=== PATIENT | female | born 1950 | race Caucasian/White ===

== ENCOUNTER → 2016-05-10 | Outpatient (CLI) | payer BC ==
[~2016-05-10] MED LIST: ASPI-586 PO; BIOT1TAB16 PO; CALC-6 PO; CHOL10003 PO; CYAN250014 PO; HYALURONIC ACID PO; HYDR-3730 PO; HYDR50TA3 PO; JOINT PO; KRIL1CAP2 PO; LEVO25TA5 PO; MAGN400T6 PO; POTA20TA8 PO; VITA400C60 PO; [UNRECOGNIZED DRUG - OTHER] PO
--- NOTE | 2016-05-10 16:46 | Diagnostic Imaging Report ---
EXAMINATION: PET-CT TECHNIQUE: Serum glucose level at the time of the study is: 92 mg/dL. 13.3 mCi of FDG was administered intravenously followed by obtaining PET images with corresponding noncontrast CT scan images. The CT scan was performed for anatomic correlation and attenuation correction and was not performed according to the diagnostic protocol of the areas covered. The scan was performed from the head to mid thighs. INDICATION: Rectal mass. Rectal bleeding. FINDINGS: There is a mass at the distal aspect of the sigmoid colon measuring 5.5 cm in length with associated hypermetabolism and associated FDG uptake with SUV of 9. There is no hypermetabolic regional enlarged lymph nodes or liver metastasis seen. No other hypermetabolic suspicious mass is seen in the abdomen or pelvis. There is symmetric FDG uptake in the brain. There is mild nonfocal areas of increased FDG uptake in the pharynx probably physiologic with no focal suspicious area of hypermetabolism. There is no suspicious hypermetabolic lesion seen in the chest. The osseous structures demonstrate no significant hypermetabolic lesions to suggest metastasis. IMPRESSION: Hypermetabolic mass in the distal sigmoid colon with no hypermetabolic regional enlarged lymph nodes and no evidence of metastasis. Dictated by: Dictated on workstation # [id number]
== END ==
LOC: RAD 11:17
PROVIDERS: ATTEND Surgery
DX: C18.9 Malignant neoplasm of colon, unspecified (principal)

== ENCOUNTER 2016-05-20 09:39 | Outpatient (CLI) | payer BC, MEDICARE ==
[~2016-05-20] VITALS: Ht 160 cm; Wt 62.3 kg
[2016-05-20 09:49] VITALS: BP 143/76
[2016-05-20] MEDS ORDERED: CALC-6 PO (11:11)
[2016-05-20] MEDS ORDERED: ASPI-586 PO (11:11)
[2016-05-20] MEDS ORDERED: BIOT1TAB16 PO (11:11)
[2016-05-20] MEDS ORDERED: POTA20TA8 PO (11:11)
[2016-05-20] MEDS ORDERED: VITA400C60 PO (11:11)
[2016-05-20] MEDS ORDERED: HYDR50TA3 PO (11:11)
[2016-05-20] MEDS ORDERED: KRIL1CAP2 PO (11:11)
[2016-05-20] MEDS ORDERED: CHOL10003 PO (11:11)
[2016-05-20] MEDS ORDERED: CYAN250014 PO (11:11)
[2016-05-20] MEDS ORDERED: [UNRECOGNIZED DRUG - OTHER] PO (11:11)
[2016-05-20] MEDS ORDERED: HYALURONIC ACID PO (11:11)
[2016-05-20] MEDS ORDERED: LEVO25TA5 PO (11:11)
[2016-05-20] MEDS ORDERED: JOINT PO (11:11)
== END 2016-05-20 10:25 | disposition home or self-care (01) ==
LOC: PREOP 09:39
PROVIDERS: ATTEND Surgery Pediatric Surgery
DX: Z01.818 Encounter for other preprocedural examination (principal); Z11.2 Encounter for screening for other bacterial diseases; C18.9 Malignant neoplasm of colon, unspecified
CPT/HCPCS: 87081

== ENCOUNTER 2016-05-26 08:45 | Inpatient (IN) | payer BC, MEDICARE ==
[~2016-05-26] VITALS: Ht 160 cm; Wt 62.3 kg
[~2016-05-26 08:45] MED LIST changes: -HYDR-3730 PO; -MAGN400T6 PO
--- NOTE | 2016-05-26 09:04 | Progress Note-Pre Operative ---
Pre-Operative Progress Note H&P Reviewed The H&P was reviewed, patient examined and no changes noted. Date H&P Reviewed: May 26, 2016 Time H&P Reviewed: 09:00 Pre-Operative Diagnosis: colorectal cancer KATHI MCCLURE MD May 26, 2016 9:04 am
[2016-05-26] MEDS ORDERED: metroNIDAZOLE 500MG/100ML IVPB 100 ML ONE (09:06)
[2016-05-26] MEDS ORDERED: LEVOFLOXACIN 500 MG/100 ML IV 100 ML ONE (09:06)
[2016-05-26] MEDS: LACTATED RINGERS 1,000 ML IV SCH ×3 (09:15→13:45)
[2016-05-26] MEDS ORDERED: LEVOFLOXACIN 500 MG/D5W 100 ML (PRE-MIX) IV ONE (09:30)
[2016-05-26] MEDS ORDERED: CATHETER FLUSH 10 ML SYR IV PRN (09:30)
[2016-05-26] MEDS ORDERED: metroNIDAZOLE 500 MG/100 ML IVPB (PRE-MIX) IV ONE (09:30)
[2016-05-26 10:05] VITALS: BP 155/73
[2016-05-26] MEDS ORDERED: HEParin (CENTRAL IV FLUSH) 500 UNIT/5 ML SYR ONE ×2 (10:37→11:40)
[2016-05-26] MEDS ORDERED: BUP/EPI 0.5% 1:200,000 (SENSORCAINE) 30 ML VIAL ONE (10:37)
[2016-05-26] MEDS ORDERED: LACTATED RINGERS 1,000 ML IV PRN (10:40)
[2016-05-26] MEDS ORDERED: SEVOFLURANE (ULTANE) 15 ML INHAL SOLN ONE ×2 (10:43→14:33)
[2016-05-26] MEDS ORDERED: LACTATED RINGERS 1,000 ML IV ONE ×3 (10:43→14:31)
[2016-05-26] MEDS ORDERED: proPOfol 200 MG/20 ML (DIPRIVAN) VIAL IV ONE (10:43)
[2016-05-26] MEDS ORDERED: ROCURONIUM 50 MG/5 ML (ZEMURON) VIAL IV ONE ×2 (10:43→13:26)
[2016-05-26] MEDS ORDERED: LIDOCAINE PF 2% 10 ML (XYLOCAINE) AMP ONE (10:43)
[2016-05-26] MEDS ORDERED: fentaNYL INJECTION 100 MCG/2 ML AMP ONE ×2 (10:44→13:29)
[2016-05-26] MEDS ORDERED: MIDAZOLAM 2 MG/2 ML (VERSED) VIAL ONE (10:44)
[2016-05-26] MEDS ORDERED: NEOSTIGMINE (BLOXIVERZ ) 1 MG/1ML 10 ML VIAL ONE (14:28)
[2016-05-26] MEDS ORDERED: GLYCOPYRROLATE 0.2 MG/ML (ROBINUL) 2 ML VIAL ONE (14:28)
--- NOTE | 2016-05-26 14:38 | Progress Note-Post Operative ---
Post-Operative Progess Note Surgeon (s)/Campground Manager (s) Surgeon KATHI MCCLURE MD Campground Manager: lindsey serrano [employer] Pre-Operative Diagnosis colorectal cancer Post-Operative Diagnosis same Post-Op Procedure Note Date of Procedure: May 26, 2016 Name of Procedure Performed: laparoscopic low anterior sigmoid colorectal resection. placement left subclavian central venous catheter. Description of the Procedure: laparoscopic low anterior sigmoid colorectal resection. placement left subclavian central venous catheter. Findings of the Procedure . Anesthesia Type GET Estimated blood loss (mL): 200ml Specimen(s) collected/removed sigmioid-rectum KATHI MCCLURE MD May 26, 2016 2:38 pm
[2016-05-26] MEDS ORDERED: HYDROcodone/APAP 7.5 MG/325 MG (LORTAB, LORCET PLUS) TABLET PO PRN (14:45)
[2016-05-26] MEDS ORDERED: fentaNYL INJECTION 5,000 MCG in NS (IVPB) 0 ML IV SCH (14:45)
[2016-05-26] MEDS ORDERED: morphine INJ 10 MG/ML 1ML (SYR OR VIAL) ONE (14:56)
[2016-05-26] MEDS: morphine INJ 10 MG/ML 1ML (SYR OR VIAL) IVP PRN ×2 (15:05→15:12)
[2016-05-26] MEDS ORDERED: HYDROmorphone (DILAUDID) 2 MG/ML VIAL ONE (15:16)
[2016-05-26] MEDS: HYDROmorphone (DILAUDID) 2 MG/ML VIAL IVP PRN ×2 (15:23→15:33)
[2016-05-26] MEDS ORDERED: ONDANSETRON 4 MG/2 ML (SDV) Z0FRAN IVP PRN (15:30)
--- NOTE | 2016-05-26 15:36 | Diagnostic Imaging Report ---
EXAMINATION: Portable upright radiograph of the chest. INDICATION: Post central line placement. FINDINGS: There is an NG tube in place. There is a left subclavian line with the tip at the upper SVC level. There is soft tissue air along the neck, the chest wall, the upper abdominal wall laterally and along the breast tissues. There is no pneumothorax. No definite pneumomediastinum although some of the air density in the neck appears to project over the upper mediastinum. No focal pulmonary infiltrate. The heart size is borderline enlarged. No effusion or pneumothorax. IMPRESSION: 1. Prominent amount of soft tissue air, in the abdominal and chest beltran and in the neck. Part of the air density projects over the upper mediastinum but could be from overlying superficial soft tissues. If there is concern for pneumomediastinum, then CT chest evaluation would be helpful. 2. Prominent cardiac size. No focal infiltrate. Dictated by: Dictated on workstation # [id number]
[2016-05-26] MEDS ORDERED: fentaNYL (OMNICELL DRIP KIT ONLY) 250 MCG/5 ML AMP ONE (16:42)
[2016-05-26] MEDS: 1/2 NS W/KCL 20 MEQ/L 1,000 ML IV SCH ×2 (17:01→21:18)
[2016-05-26] MEDS: metroNIDAZOLE 500MG/100ML IVPB 100 ML IV SCH ×2 (17:45→22:26)
[2016-05-26] MEDS: fentaNYL PCA 300 MCG/30 ML VIAL IV PRN (17:47)
[2016-05-26 20:00] VITALS: BP 139/69
[2016-05-26 21:00] VITALS: BP 124/70
[2016-05-26] MEDS: CLINDAMYCIN 900 MG/NS 50 ML IVPB IV SCH ×2 (21:35)
[2016-05-26] MEDS: ENOXAPARIN 30 MG/0.3 ML (LOVENOX) SYR SC SCH (21:35)
[2016-05-26 22:00] VITALS: BP 129/62
[2016-05-26] MEDS ORDERED: CLINDAMYCIN 900 MG/50 ML IVPB 50 ML IV SCH (22:00)
[2016-05-26 23:00] VITALS: BP 134/59
[2016-05-27] VITALS (15 sets, daily range): BP systolic 116–143; BP diastolic 54–74
[2016-05-27] MEDS: 1/2 NS W/KCL 20 MEQ/L 1,000 ML IV SCH ×4 (02:15→19:39)
[2016-05-27] MEDS: RT-ALBUTEROL SULF 2.5 MG/3 ML PRE-MIX VIAL INH SCH ×6 (02:23→22:38)
[2016-05-27] MEDS ORDERED: MAGNESIUM 1 GM/100 ML IVPB 100 ML IV SCH (06:00)
[2016-05-27] MEDS ORDERED: POTASSIUM CL 10MEQ/50ML IVPB 50 ML IV SCH (06:00)
[2016-05-27] MEDS ORDERED: KCL 20 MEQ TAB (K-DUR) PO SCH (06:00)
[2016-05-27] MEDS: CLINDAMYCIN 900 MG/NS 50 ML IVPB IV SCH ×4 (06:18→16:08)
[2016-05-27 06:45] LABS: BASOPHILS % (AUTO) 0 % (0-10); EOSINOPHILS % (AUTO) 0 % (0-10); LYMPHOCYTES # (AUTO) 0.6 X 10^3 (1.0-4.0); LYMPHOCYTES % (AUTO) 5 % (12-44); MEAN CORPUSCULAR HEMOGLOBIN 28 PG (25-34); MEAN CORPUSCULAR HGB CONC 33 G/DL (32-36); MEAN CORPUSCULAR VOLUME 86 FL (80-99); MEAN PLATELET VOLUME 10.2 FL (7.4-10.4); MONOCYTES # (AUTO) 0.8 X 10^3 (0.0-1.0); MONOCYTES % (AUTO) 7 % (0-12); NEUTROPHILS % (AUTO) 89 % (42-75); PLATELET COUNT 303 10^3/uL (130-400); RED BLOOD COUNT 3.99 10^6/uL (4.35-5.85); RED CELL DISTRIBUTION WIDTH 13.3 % (10.0-14.5); WHITE BLOOD COUNT 12.4 10^3/uL (4.3-11.0)
[2016-05-27] MEDS: metroNIDAZOLE 500MG/100ML IVPB 100 ML IV SCH (07:02)
[2016-05-27 07:06] LABS: ANION GAP 12 MMOL/L (5-14); BLOOD UREA NITROGEN 7 MG/DL (7-18); BUN/CREATININE RATIO 11; CALCIUM 7.8 MG/DL (8.5-10.1); CARBON DIOXIDE 22 MMOL/L (21-32); CHLORIDE 104 MMOL/L (98-107); CREATININE SERUM 0.64 MG/DL (0.60-1.30); GFR ESTIMATED > 60; GLUCOSE 120 MG/DL (70-105); MAGNESIUM 1.5 MG/DL (1.8-2.4); PHOSPHORUS 3.1 MG/DL (2.3-4.7); POTASSIUM 3.2 MMOL/L (3.6-5.0); SODIUM 138 MMOL/L (135-145)
--- NOTE | 2016-05-27 07:49 | Diagnostic Imaging Report ---
Portable erect AP chest at 4:52 AM. INDICATION: Postop. The heart size is within normal limits, and the heart does seem somewhat less prominent than noted on the prior exam of 05/26/2016. The interstitial densities in both lungs are also less striking than noted on the prior exam. There is no sign of pneumonia or a pleural effusion. The previous study did show a fair amount of subcutaneous emphysema overlying the right thorax. This has diminished as well. There is only a small amount of residual subcutaneous emphysema in the left supraclavicular region also. The mediastinum is not widened. The osseous structures are intact. The supportive tubes and lines seen previously are stable in position. IMPRESSION: The appearance of the chest has improved since the prior exam as the lungs do seem better aerated and the subcutaneous emphysema overlying the thorax seen previously has diminished. A followup study would be recommended for continued evaluation. Dictated by: Dictated on workstation # [id number]
[2016-05-27] MEDS: MAGNESIUM 1 GM/100 ML IVPB 100 ML IV SCH ×2 (09:12→10:41)
[2016-05-27] MEDS: ENOXAPARIN 30 MG/0.3 ML (LOVENOX) SYR SC SCH ×2 (09:12→20:23)
[2016-05-27] MEDS: PANTOPRAZOLE 40 MG/10 ML (PROTONIX) VIAL IV SCH (09:12)
[2016-05-27] MEDS: POTASSIUM CL 10MEQ/50ML IVPB 50 ML IV SCH ×4 (09:12→15:07)
--- NOTE | 2016-05-27 10:00 | OPERATIVE REPORT ---
PROCEDURE PHYSICIAN: KATHI SETH DATE OF PROCEDURE: 05/26/2016 ATTENDING PRIMARY CARE PHYSICIAN: Dr. Monie Serra PREOPERATIVE DIAGNOSIS: Colorectal adenocarcinoma POSTOPERATIVE DIAGNOSIS: Colorectal adenocarcinoma PROCEDURE: Laparoscopic low anterior colorectal resection with anastomosis. Placement of left subclavian central venous catheter. SURGEON: Dr. Seth. ANTHROPOLOGY DEPARTMENT CHAIR: Ryan Weir APRN. ANESTHESIA: General endotracheal. ESTIMATED BLOOD LOSS: 200 milliliters FINDINGS: The lesion was at the rectosigmoid junction, and identified by the tumor itself, as well as previous submucosal black ink injection. There did not appear to be any serosal involvement or involvement of any adjacent organs. There did not appear to be any significant or pathologic adenopathy. DISPOSITION: The patient tolerated the procedure well. Ms. Juana Hamlin is a 66-year-old female who was referred over to us for a biopsy-proven colorectal cancer. She has had a long-standing history of constipation even back in her teenage years. At that time she states the main reason was when she felt the need to have a bowel movement she would hold it and this would allow for increased absorption harder stools. This continued for a few more decades. Over time, she is able to become healthier and incorporate healthier foods and weight loss and states that her stools became softer. During her busy season at work during the Holiday season in January 2016, she developed intermittent episodes of rectal bleeding. She did not report any abdominal pain. She did feel fatigued and did notice some weight loss as well. She not had any previous colonoscopies done in the past. She also denied any family history of colon cancer. Colonoscopy was performed 05/06/2016, which showed a large sessile mass of the colorectal region, approximately 8 cm from the anal verge. This was snare biopsied and consistent with a moderately differentiated colorectal carcinoma. She underwent further work-up including a CT scan and PET scan which did not show any lymphatic invasion, as well as no distant metastasis. The lesion identified on was approximately 5.5 cm in length. PROCEDURE: The patient was brought to the operating room, laid supine on the table. After adequate IV pain and sedative medications and general endotracheal intubation, the neck and chest were prepped and draped in standard surgical fashion. Left subclavian vein was cannulated withdrawing of venous blood. The guidewire was then inserted without any resistance. The cannulating needle removed and a small skin incision was made using 11 blade. A tract was then created using a venous dilator over the guidewire. The triple lumen central venous catheter was then placed over the guidewire using the Seldinger technique. The guidewire was then removed. All 3 ports jeanine venous blood and saline pushed in without any resistance. The catheter was then sutured to the skin using 3-0 silk interrupted sutures. The catheter was then cleaned and covered with sterile gauze, followed by OpSite. The patient was then placed in a modified lithotomy position and the abdomen and perineum were prepped and draped in standard fashion. We first proceeded with placement of supraumbilical 10 mm port. The supraumbilical region was anesthetized using 0.5% Marcaine with epinephrine and a crescent shaped skin incision made using a 15 blade. A sharp towel clamp was used to retract the stomach wall anteriorly and a Veress needle inserted with low opening pressure of 0 mmHg and the abdomen was then insufflated to 15 mmHg pressure. The Veress needle removed and a 10 mm Xcel trocar placed followed by a 10 mm, 45 degrees angle laparoscope, visualizing the peritoneal cavity. Under direct visualization we then proceeded to place a left lateral 5 mm port followed by a suprapubic 10 mm port. The patient was then placed in was placed in Trendelenburg position as well as planed left side up, right side down. We first proceeded with dissection of the sigmoid colon starting with the lateral to medial approach. The left ureter was identified and spared throughout the process. We then proceeded with cephalad direction to obtain length taken down the white lines of Toldt. We then proceeded inferior taking down the entire peritoneal reflection using Sonicision with visualization of good hemostasis. We also proceeded with full mesorectal excision of the mesentery and lymph nodes using Sonicision with visualization of good hemostasis. The rectum was then stapled using a DIOGO 4.0 millimeter thickness stapler. The skin incision to the 5 mm port site was then extended using a 10 blade and electrocautery. The rectum, including the mass, as well as the sigmoid colon was brought through this opening. An area along the descending colon was marked with visualization of good vascular perfusion. This was clamped with a pursestring and the colon resected using a 10 blade and sent to pathology. This opening was then dilated to 29 mm and it was decided to use a 28 mm EEA stapler. The anvil was placed into this opening and the pursestring tied. The distal colon was then reduced back into the abdomen and towel clamps applied and pneumoperitoneum achieved. The rectum was dilated to approximately the 31 mm dilator without any difficulty. The EEA stapler was then placed and the stem opened under direct visualization at the rectal stump. The anvil was then placed under the stem and closed until medium attention was applied. The stapler was then fired and removed with the entire staple line intact, as well as the proximal and distal donuts. Good hemostasis was also observed. A 19-Monegasque Miguel drain was placed near the area of anastomosis and brought out the 10 mm suprapubic port site. The fascia and peritoneum to the 10 mm supraumbilical port site was closed under direct visualization using a Timur-Melyssa device. The wide incision in the left lateral abdomen was then closed using 0 PDS running suture. Subcutaneous tissue was then reapproximated using 3-0 Vicryl interrupted sutures. All skin incisions were closed using 4-0 Monocryl running subcuticular suture. The drain was attached to the skin using 3-0 nylon interrupted sutures. The patient tolerated the procedure well. We will admit her to the ICU. We will continue with bowel rest and IV fluid hydration as well as DVT prophylaxis with early ambulation, calf SCDs, as well as Lovenox injections. We will also await bowel function and monitor urine output and remove the Meyers catheter tomorrow. Once she has hard evidence of bowel function, we will remove the NG tube and start a clear liquid diet and advance as tolerated. Job ID: [id number] Dictated Date: 05/26/2016 15:00:24 News Analyst Date: 05/27/2016 09:36:15 / champ
--- NOTE | 2016-05-27 10:55 | Consultation-Hospitalist ---
HPI History of Present Illness: HPI/Chief Complaint CC: Medical management following uncomplicated laparoscopic low anterior sigmoid colorectal resection POD # 1 HPI: This is a 66-year-old white female clinic patient of Dr. Carr at [facility] with a past medical history of hypothyroidism and arthritis the presents following an uncomplicated sigmoid resection due to diagnosis of colon cancer. She has an NG tube in place and overall feeling well and pain is controlled with IV pain medication. She is using her incentive spirometer faithfully and denies any other significant problems currently. I reviewed her labs at home medication list and will continue monitoring closely and following from a medical management standpoint until discharge. Source: patient, RN/MD Date Seen 05/27/16 Attending Physician Scott Seth MD PCP Monie Serra MD Referring Physician Date of Admission May 26, 2016 at 08:45 Home Medications & Allergies Home Medications Reviewed patient Home Medication Reconciliation Form Allergies Allergies Coded Allergies Sulfa (Sulfonamide Antibiotics) (Verified Allergy, Unknown, HIVES, 05/20/16) Tetanus Vaccines and Toxoid (Verified Allergy, Unknown, injection site swelled up to baseball size, 05/20/16) adhesive tape (Verified Allergy, Unknown, HIVES, 05/20/16) cephalexin (Verified Allergy, Unknown, RASH, 05/20/16) codeine (Verified Allergy, Unknown, makes me loopy, 05/20/16) diphenhydramine (Verified Allergy, Unknown, makes me loopy, 05/20/16) hydroxychloroquine (Verified Allergy, Unknown, HIVES, 05/20/16) ibuprofen (Verified Allergy, Unknown, NAUSEA, 05/20/16) latex (Verified Allergy, Unknown, RASH, 05/20/16) methylprednisolone (Verified Allergy, Unknown, NAUSEA, 05/20/16) oseltamivir (Verified Allergy, Unknown, stomach cramps, 05/20/16) tolmetin (Verified Allergy, Unknown, HIVES, 05/20/16) Past Uejnukx-[place]-Shnrre Hx Patient Social History Marrital Status: single Employed/Student: employed ([employer] for 19 years) Alcohol Use: Rarely Uses Recreational Drug Use: No Smoking Status: Former Smoker Physical Abuse Screen: No Sexual Abuse: No Recent Foreign Travel: No Contact w/other who traveled: No Recent Hopitalizations: No Recent Infectious Disease Expo: No Seasonal Allergies Seasonal Allergies: Yes Surgeries HX Surgeries: No Respiratory Hx Respiratory Disorders: No Cardiovascular Hx Cardiovascular Disorders: No Neurological Hx Neurological Disorders: No Genitourinary Hx Genitourinary Disorders: No Gastrointestinal Hx Gastrointestinal Disorders: No Musculoskeletal Hx Musculoskeletal Disorders: Yes Musculoskeletal Disorders: Rheumatoid Arthritis Endocrine Hx Endocrine Disorders: Yes Endocrine Disorders: Hypothyroidsim HEENT HX ENT Disorders: Yes HEENT Disorders: Cataract Cancer Hx Cancer: Yes Cancer: Colon Psychosocial Hx Psychiatric Problems: No Integumentary HX Skin/Integumentary Disorder: No Family Medical History Family Hx: Alcoholism G8 BROTHER Asthma 19 MOTHER Diabetes mellitus 19 MOTHER Hypertension 19 MOTHER Myocardial infarction 19 MOTHER G8 BROTHER Thyroid disease 19 MOTHER Review of Systems Constitutional: see HPI EENTM: no symptoms reported Respiratory: no symptoms reported Cardiovascular: no symptoms reported Gastrointestinal: abdominal pain (LLQ) Genitourinary: no symptoms reported Musculoskeletal: no symptoms reported Skin: no symptoms reported Psychiatric/Neurological: No Symptoms Reported All Other Systems Reviewed Negative Unless Noted: Yes Physical Exam Physical Exam Vital Signs Vital Sign - Last 12Hours 05/26/16 10:05 Temp 98.1 Pulse 90 Resp 16 B/P (MAP) 155/73 Pulse Ox 99 O2 Delivery Room Air Capillary Refill : General Appearance: No Apparent Distress, WD/WN, Chronically ill, Other (NG tube is in place) Eyes: Bilateral Eye Normal Inspection, Bilateral Eye PERRL HEENT: PERRL/EOMI, Normal ENT Inspection, Pharynx Normal Neck: Full Range of Motion, Normal Inspection, Non Tender, Supple, Carotid Bruit Respiratory: Chest Non Tender, Lungs Clear, Normal Breath Sounds, No Accessory Muscle Use, No Respiratory Distress Cardiovascular: Regular Rate, Rhythm, No Edema, No Gallop, No JVD, No Murmur, Normal Peripheral Pulses Gastrointestinal: Abnormal Bowel Sounds (no bowel sounds noted) Back: Normal Inspection, No CVA Tenderness, No Vertebral Tenderness Extremity: Normal Capillary Refill, Normal Inspection, Normal Range of Motion, Non Tender, No Calf Tenderness, No Pedal Edema Neurologic/Psychiatric: Alert, Oriented x3, No Motor/Sensory Deficits, Normal Mood/Affect Skin: Normal Color, Warm/Dry Lymphatic: No Adenopathy Results Results/Procedures Lab Laboratory Tests 05/27/16 06:15 Assessment/Plan Admission Diagnosis Assessment: Uncomplicated laparoscopic low anterior sigmoid colorectal resection POD # 1 Hypothyroidism Leukocytosis Hypokalemia Anemia Assessment and Plan Plan: NG tube to be maintained to treat postop ileus Monitor blood pressure Incentive spirometer Pain control Restart home meds when able to tolerate by mouth Clinical Quality Measures DVT/VTE Risk/Contraindication: Risk Factor Score Per Nursin RFS Level Per Nursing on Admit: 4+=Very High AZUL REYES DO May 27, 2016 10:55
[2016-05-27] MEDS: ONDANSETRON 4 MG/2 ML (SDV) Z0FRAN IVP PRN (11:52)
--- NOTE | 2016-05-27 12:55 | Progress Note (SOAP) ---
Subjective Subjective/Events-last exam doing well. pain better controlled. no bowel function yet. Objective Exam Vital Signs Date Time Temp Pulse Resp B/P (MAP) Pulse Ox O2 Delivery O2 Flow Rate FiO2 05/27/16 12:47 99.1 70 17 120/69 92 Room Air 05/27/16 11:00 87 16 124/64 97 Room Air 05/27/16 10:17 100 05/27/16 10:00 82 9 128/57 99 Room Air 05/27/16 09:26 98.2 85 10 133/59 100 Room Air 05/27/16 09:00 Room Air 05/27/16 08:00 88 12 126/59 98 Room Air 05/27/16 07:18 100 05/27/16 07:00 78 8 125/56 99 Room Air 05/27/16 07:00 77 05/27/16 06:48 19 05/27/16 06:00 75 20 121/54 100 Room Air 05/27/16 05:00 76 12 125/59 100 Room Air 05/27/16 04:00 97.8 05/27/16 04:00 81 11 116/55 100 Room Air 05/27/16 03:00 89 13 123/55 100 Room Air 05/27/16 02:24 100 05/27/16 02:00 74 12 122/60 100 Room Air 05/27/16 01:21 73 05/27/16 01:00 78 10 122/61 100 Room Air 05/27/16 00:00 98.6 05/27/16 00:00 71 11 121/64 100 Room Air 05/26/16 23:00 73 10 134/59 100 Room Air 05/26/16 22:00 73 15 129/62 100 Room Air 05/26/16 21:00 Room Air 05/26/16 21:00 68 12 124/70 100 Room Air 05/26/16 20:00 96.9 05/26/16 20:00 69 11 139/69 100 Room Air 05/26/16 16:00 Room Air 05/26/16 16:00 98.2 I & O 05/27/16 07:00 Intake Total 3412 ml Output Total 2145 ml Balance 1267 ml Capillary Refill : General Appearance: No Apparent Distress HEENT: PERRL/EOMI Neck: Full Range of Motion Respiratory: Chest Non Tender, Lungs Clear, Normal Breath Sounds Cardiovascular: Regular Rate, Rhythm Gastrointestinal: soft, other (wounds clean/dry) Extremity: Normal Capillary Refill Neurologic/Psychiatric: Alert, Oriented x3 Skin: Normal Color Lymphatic: No Adenopathy Results Lab Laboratory Tests 05/27/16 06:15: White Blood Count 12.4H, Red Blood Count 3.99L, Hemoglobin 11.3L, Hematocrit 34L , Mean Corpuscular Volume 86, Mean Corpuscular Hemoglobin 28, Mean Corpuscular Hemoglobin Concent 33, Red Cell Distribution Width 13.3, Platelet Count 303, Mean Platelet Volume 10.2, Neutrophils (%) (Auto) 89H, Lymphocytes (%) (Auto) 5L , Monocytes (%) (Auto) 7, Eosinophils (%) (Auto) 0, Basophils (%) (Auto) 0, Neutrophils # (Auto) 11.0H, Lymphocytes # (Auto) 0.6L, Monocytes # (Auto) 0.8, Eosinophils # (Auto) 0.0, Basophils # (Auto) 0.0, Sodium Level 138, Potassium Level 3.2L, Chloride Level 104, Carbon Dioxide Level 22, Anion Gap 12, Blood Urea Nitrogen 7, Creatinine 0.64, Estimat Glomerular Filtration Rate > 60, BUN/ Creatinine Ratio 11, Glucose Level 120H, Calcium Level 7.8L, Phosphorus Level 3.1, Magnesium Level 1.5L Assessment/Plan Assessment/Plan Assess & Plan/Chief Complaint s/p laparoscopic LAR for adenocarcinoma. d/c hills/ increase ambulation and await bowel fxn. Clinical Quality Measures DVT/VTE Risk/Contraindication: Risk Factor Score Per Nursin RFS Level Per Nursing on Admit: 4+=Very High KATHI MCCLURE MD May 27, 2016 12:55
--- NOTE | 2016-05-27 13:42 | Anesthesia-General Post-Op ---
General Patient Condition Mental Status/LOC: Same as Preop Cardiovascular: Satisfactory Nausea/Vomiting: Absent Respiratory: Satisfactory Pain: Controlled Complications: Absent Post Op Complications Complications None Follow Up Care/Instructions Patient Instructions None needed. Anesthesia/Patient Condition Patient Condition Patient is doing well, C/O sore throat d/t NGT (expected), stable vital signs, no apparent adverse anesthesia problems. QIAN BLUM DO May 27, 2016 13:42
[2016-05-27] MEDS ORDERED: METOCLOPRAMIDE INJ 10 MG/2 ML (REGLAN) IVP PRN (14:45)
[2016-05-27] MEDS: ACETAMINOPHEN 325 MG TABLET/CAPLET (TYLENOL) PO PRN (17:45)
[2016-05-28] VITALS: BP 146/75
[2016-05-28] MEDS: ONDANSETRON 4 MG/2 ML (SDV) Z0FRAN IVP PRN ×2 (02:00→09:25)
[2016-05-28] MEDS: 1/2 NS W/KCL 20 MEQ/L 1,000 ML IV SCH ×3 (02:00→18:44)
[2016-05-28] MEDS: RT-ALBUTEROL SULF 2.5 MG/3 ML PRE-MIX VIAL INH SCH ×3 (02:44→11:07)
[2016-05-28 04:00] VITALS: BP 141/84
[2016-05-28] MEDS: fentaNYL PCA 300 MCG/30 ML VIAL IV PRN (05:16)
[2016-05-28 05:26] LABS: BASOPHILS % (AUTO) 0 % (0-10); EOSINOPHILS % (AUTO) 0 % (0-10); LYMPHOCYTES # (AUTO) 1.2 X 10^3 (1.0-4.0); LYMPHOCYTES % (AUTO) 10 % (12-44); MEAN CORPUSCULAR HEMOGLOBIN 28 PG (25-34); MEAN CORPUSCULAR HGB CONC 33 G/DL (32-36); MEAN CORPUSCULAR VOLUME 86 FL (80-99); MEAN PLATELET VOLUME 10.2 FL (7.4-10.4); MONOCYTES % (AUTO) 8 % (0-12); NEUTROPHILS # (AUTO) 10.4 X 10^3 (1.8-7.8); NEUTROPHILS % (AUTO) 82 % (42-75); PLATELET COUNT 308 10^3/uL (130-400); RED BLOOD COUNT 3.86 10^6/uL (4.35-5.85); RED CELL DISTRIBUTION WIDTH 13.8 % (10.0-14.5); WHITE BLOOD COUNT 12.6 10^3/uL (4.3-11.0)
[2016-05-28 05:48] LABS: ALANINE AMINOTRANSFERASE 13 U/L (0-55); ANION GAP 9 MMOL/L (5-14); ASPARTATE AMINO TRANSFERASE 18 U/L (5-34); BILIRUBIN,TOTAL 0.5 MG/DL (0.1-1.0); BLOOD UREA NITROGEN 4 MG/DL (7-18); BUN/CREATININE RATIO 7; CARBON DIOXIDE 22 MMOL/L (21-32); CHLORIDE 105 MMOL/L (98-107); GFR ESTIMATED > 60; GLUCOSE 123 MG/DL (70-105); POTASSIUM 3.6 MMOL/L (3.6-5.0); SODIUM 136 MMOL/L (135-145)
[2016-05-28 06:08] LABS: MAGNESIUM 2.5 MG/DL (1.8-2.4)
[2016-05-28 06:31] LABS: PHOSPHORUS 1.3 MG/DL (2.3-4.7)
[2016-05-28 08:00] VITALS: BP 155/82
[2016-05-28] MEDS: PANTOPRAZOLE 40 MG/10 ML (PROTONIX) VIAL IV SCH (09:07)
[2016-05-28] MEDS: ENOXAPARIN 30 MG/0.3 ML (LOVENOX) SYR SC SCH (09:07)
[2016-05-28] MEDS: ACETAMINOPHEN 325 MG TABLET/CAPLET (TYLENOL) PO PRN (09:17)
[2016-05-28] MEDS ORDERED: POTASSIUM PHOSPHATE INJ 30 MM in NS (IVPB) 250 ML IV ONE (10:45)
--- NOTE | 2016-05-28 10:49 | Progress Note-Hospitalist ---
Subjective HPI/CC On Admission CC: Medical management following uncomplicated laparoscopic low anterior sigmoid colorectal resection POD # 1 HPI: This is a 66-year-old white female clinic patient of Dr. Carr at [facility] with a past medical history of hypothyroidism and arthritis the presents following an uncomplicated sigmoid resection due to diagnosis of colon cancer. She has an NG tube in place and overall feeling well and pain is controlled with IV pain medication. She is using her incentive spirometer faithfully and denies any other significant problems currently. I reviewed her labs at home medication list and will continue monitoring closely and following from a medical management standpoint until discharge. Date Seen 05/28/16 Subjective/Events-last exam patient is without complaint. denies chest pain or shortness of breath. vitals reflect a low-grade temperature and a tachycardia however the patient appears well and denies any problems at my interview. She has not had flatus has had a little bit of nausea Review of Systems Gastrointestinal: Nausea Neurological: Weakness Objective Exam Vital Signs Vital Sign - Last 12Hours 05/26/16 10:05 Temp 98.1 Pulse 90 Resp 16 B/P (MAP) 155/73 Pulse Ox 99 O2 Delivery Room Air Capillary Refill : General Appearance: No Apparent Distress, WD/WN HEENT: Normal ENT Inspection Neck: Supple Respiratory: Lungs Clear, Decreased Breath Sounds Cardiovascular: Regular Rate, Rhythm, No Gallop, No Murmur Gastrointestinal: Normal Bowel Sounds, Guarding Extremity: Normal Capillary Refill, Non Tender, No Calf Tenderness Neurologic/Psychiatric: Alert, Oriented x3, No Motor/Sensory Deficits, Normal Mood/Affect Results/Procedures Lab Laboratory Tests 05/28/16 05:15 Assessment/Plan Assessment and Plan Assess & Plan/Chief Complaint Assessment: Uncomplicated laparoscopic low anterior sigmoid colorectal resection POD # 2 Hypothyroidism-replaced Leukocytosis Hypokalemia-replaced Anemia hypophosphatemia will replace CORINE JASSO MD May 28, 2016 10:49
[2016-05-28 11:48] VITALS: BP 144/73
--- NOTE | 2016-05-28 12:28 | Progress Note-Standard ---
Standard Progress Note Progress Notes/Assess & Plan Progress/Assessment & Plan 05/28/16:has not passed flatus. Temperature spike to 100.4. Vital signs stable. NG output about 300 mL. Final Diagnosis NG could be clamped. Replace phosphorus. Await bowel function. JANAY DEMARCO MD May 28, 2016 12:28 pm
[2016-05-28] MEDS: LEVOTHYROXINE 25 MCG (LEVOTHROID) TAB PO SCH (13:42)
[2016-05-28 15:43] VITALS: BP 144/82
[2016-05-28 19:45] VITALS: BP 144/84
[2016-05-29] VITALS (7 sets, daily range): BP systolic 135–160; BP diastolic 75–92
[2016-05-29] MEDS: 1/2 NS W/KCL 20 MEQ/L 1,000 ML IV SCH ×2 (01:36→12:15)
[2016-05-29 05:28] LABS: BASOPHILS % (AUTO) 0 % (0-10); EOSINOPHILS % (AUTO) 0 % (0-10); LYMPHOCYTES # (AUTO) 1.4 X 10^3 (1.0-4.0); LYMPHOCYTES % (AUTO) 12 % (12-44); MEAN CORPUSCULAR HEMOGLOBIN 29 PG (25-34); MEAN CORPUSCULAR HGB CONC 33 G/DL (32-36); MEAN CORPUSCULAR VOLUME 87 FL (80-99); MEAN PLATELET VOLUME 10.2 FL (7.4-10.4); MONOCYTES % (AUTO) 8 % (0-12); NEUTROPHILS # (AUTO) 9.7 X 10^3 (1.8-7.8); NEUTROPHILS % (AUTO) 80 % (42-75); PLATELET COUNT 287 10^3/uL (130-400); RED BLOOD COUNT 3.65 10^6/uL (4.35-5.85); RED CELL DISTRIBUTION WIDTH 13.8 % (10.0-14.5)
[2016-05-29 06:36] LABS: ANION GAP 10 MMOL/L (5-14); BLOOD UREA NITROGEN 4 MG/DL (7-18); BUN/CREATININE RATIO 7; CARBON DIOXIDE 20 MMOL/L (21-32); CHLORIDE 106 MMOL/L (98-107); CREATININE SERUM 0.54 MG/DL (0.60-1.30); GFR ESTIMATED > 60; GLUCOSE 85 MG/DL (70-105); MAGNESIUM 1.5 MG/DL (1.8-2.4); PHOSPHORUS 1.6 MG/DL (2.3-4.7); POTASSIUM 4.4 MMOL/L (3.6-5.0); SODIUM 136 MMOL/L (135-145)
[2016-05-29] MEDS: ENOXAPARIN 40 MG/0.4 ML (LOVENOX) SYR SC SCH (08:20)
[2016-05-29] MEDS: PANTOPRAZOLE 40 MG/10 ML (PROTONIX) VIAL IV SCH (08:20)
[2016-05-29] MEDS: LEVOTHYROXINE 25 MCG (LEVOTHROID) TAB PO SCH (08:20)
[2016-05-29] MEDS ORDERED: fentaNYL INJECTION 100 MCG/2 ML AMP IVP PRN (11:30)
[2016-05-29] MEDS ORDERED: HYDROcodone/APAP 5 MG/325 MG (LORTAB) TAB PO PRN (11:30)
--- NOTE | 2016-05-29 11:30 | Progress Note-Standard ---
Standard Progress Note Progress Notes/Assess & Plan Progress/Assessment & Plan 05/28/16:has not passed flatus. Temperature spike to 100.4. Vital signs stable. NG output about 300 mL. 05/29/16:passed flatus. Pain control reasonable. NG tube removed. Incisions dry. We will initiate full liquids. Final Diagnosis carcinoma of rectosigmoid junction. JANAY DEMARCO MD May 29, 2016 11:30 am
--- NOTE | 2016-05-29 11:30 | Progress Note-Hospitalist ---
Subjective HPI/CC On Admission CC: Medical management following uncomplicated laparoscopic low anterior sigmoid colorectal resection POD # 1 HPI: This is a 66-year-old white female clinic patient of Dr. Carr at [facility] with a past medical history of hypothyroidism and arthritis the presents following an uncomplicated sigmoid resection due to diagnosis of colon cancer. She has an NG tube in place and overall feeling well and pain is controlled with IV pain medication. She is using her incentive spirometer faithfully and denies any other significant problems currently. I reviewed her labs at home medication list and will continue monitoring closely and following from a medical management standpoint until discharge. Date Seen 05/29/16 Subjective/Events-last exam patient just got her NG tube out and is feeling much better. She is passing flatus and interested in walking more. Review of Systems Neurological: Weakness Objective Exam Vital Signs Vital Sign - Last 12Hours 05/26/16 10:05 Temp 98.1 Pulse 90 Resp 16 B/P (MAP) 155/73 Pulse Ox 99 O2 Delivery Room Air Capillary Refill : General Appearance: No Apparent Distress, WD/WN HEENT: Normal ENT Inspection Respiratory: Lungs Clear, Normal Breath Sounds, No Accessory Muscle Use Cardiovascular: Regular Rate, Rhythm, No Gallop, No Murmur Gastrointestinal: Normal Bowel Sounds, Soft, Tenderness (postop) Extremity: Non Tender, No Calf Tenderness Neurologic/Psychiatric: Alert, Oriented x3, No Motor/Sensory Deficits, Normal Mood/Affect Results/Procedures Lab Laboratory Tests 05/29/16 05:15 Assessment/Plan Assessment and Plan Assess & Plan/Chief Complaint Assessment: Uncomplicated laparoscopic low anterior sigmoid colorectal resection POD # 3 Hypothyroidism-replaced Leukocytosis stable Hypokalemia-replaced Anemia stable hypophosphatemia will replace hypomagnesemia will replace CORINE JASSO MD May 29, 2016 11:30 am
[2016-05-29] MEDS ORDERED: SODIUM PHOSPHATE INJ 30 MM in NS (IVPB) 250 ML IV ONE (11:45)
[2016-05-29] MEDS ORDERED: MAGNESIUM 1 GM/100 ML IVPB 100 ML IV SCH (11:45)
[2016-05-29] MEDS: MAGNESIUM 1 GM/100 ML IVPB 100 ML IV SCH ×2 (12:14→13:21)
[2016-05-29] MEDS: ACETAMINOPHEN 325 MG TABLET/CAPLET (TYLENOL) PO PRN (12:23)
[2016-05-29] MEDS: ASPIRIN E.C. 81 MG (ECOTRIN) TAB PO SCH (12:29)
[2016-05-29] MEDS: HYDROCHLOROTHIAZIDE 25 MG (HCTZ) TAB PO SCH (12:29)
[2016-05-29] MEDS ORDERED: KCL 20 MEQ TAB (K-DUR) PO SCH (21:00)
[2016-05-30 04:32] VITALS: BP 144/70
[2016-05-30] MEDS: 1/2 NS W/KCL 20 MEQ/L 1,000 ML IV SCH (05:21)
[2016-05-30 06:41] LABS: BASOPHILS % (AUTO) 1 % (0-10); EOSINOPHILS # (AUTO) 0.2 10^3/uL (0.0-0.3); EOSINOPHILS % (AUTO) 3 % (0-10); LYMPHOCYTES # (AUTO) 1.6 X 10^3 (1.0-4.0); LYMPHOCYTES % (AUTO) 22 % (12-44); MEAN CORPUSCULAR HEMOGLOBIN 28 PG (25-34); MEAN CORPUSCULAR HGB CONC 33 G/DL (32-36); MEAN CORPUSCULAR VOLUME 87 FL (80-99); MEAN PLATELET VOLUME 10.6 FL (7.4-10.4); MONOCYTES # (AUTO) 0.6 X 10^3 (0.0-1.0); MONOCYTES % (AUTO) 8 % (0-12); NEUTROPHILS # (AUTO) 4.6 X 10^3 (1.8-7.8); NEUTROPHILS % (AUTO) 66 % (42-75); PLATELET COUNT 313 10^3/uL (130-400); RED BLOOD COUNT 3.61 10^6/uL (4.35-5.85); RED CELL DISTRIBUTION WIDTH 13.4 % (10.0-14.5)
[2016-05-30 07:04] LABS: ANION GAP 10 MMOL/L (5-14); BLOOD UREA NITROGEN 4 MG/DL (7-18); BUN/CREATININE RATIO 7; CALCIUM 8.3 MG/DL (8.5-10.1); CARBON DIOXIDE 24 MMOL/L (21-32); CHLORIDE 102 MMOL/L (98-107); CREATININE SERUM 0.54 MG/DL (0.60-1.30); GFR ESTIMATED > 60; GLUCOSE 74 MG/DL (70-105); MAGNESIUM 1.5 MG/DL (1.8-2.4); PHOSPHORUS 2.3 MG/DL (2.3-4.7); POTASSIUM 3.8 MMOL/L (3.6-5.0); SODIUM 136 MMOL/L (135-145)
[2016-05-30 09:00] VITALS: BP 155/82
[2016-05-30] MEDS: PANTOPRAZOLE 40 MG/10 ML (PROTONIX) VIAL IV SCH (09:04)
[2016-05-30] MEDS: LEVOTHYROXINE 25 MCG (LEVOTHROID) TAB PO SCH (09:05)
[2016-05-30] MEDS: ENOXAPARIN 40 MG/0.4 ML (LOVENOX) SYR SC SCH (09:05)
[2016-05-30] MEDS: ASPIRIN E.C. 81 MG (ECOTRIN) TAB PO SCH (09:05)
[2016-05-30] MEDS: HYDROCHLOROTHIAZIDE 25 MG (HCTZ) TAB PO SCH (09:05)
--- NOTE | 2016-05-30 09:27 | Progress Note (SOAP) ---
Subjective Subjective/Events-last exam doing well. tolerating clears. multiple BM's. pain controlled. no fever/chills. Objective Exam Vital Signs Date Time Temp Pulse Resp B/P (MAP) Pulse Ox O2 Delivery O2 Flow Rate FiO2 05/30/16 09:00 100.2 97 20 155/82 99 Room Air 05/30/16 07:46 Room Air 05/30/16 04:32 99.4 82 16 144/70 96 Room Air 05/29/16 23:26 97.6 89 20 153/79 96 Room Air 05/29/16 20:05 Room Air 05/29/16 20:00 99.8 89 20 149/92 98 Room Air 05/29/16 16:00 98.1 90 20 157/83 99 Room Air 05/29/16 13:23 98.9 05/29/16 13:00 18 05/29/16 12:23 100.1 05/29/16 12:00 100.1 107 18 160/75 98 Room Air I & O 05/30/16 07:00 Intake Total 4360 ml Output Total 2730 ml Balance 1630 ml Capillary Refill : General Appearance: No Apparent Distress HEENT: PERRL/EOMI Neck: Full Range of Motion Respiratory: Chest Non Tender, Lungs Clear, Normal Breath Sounds Cardiovascular: Regular Rate, Rhythm Gastrointestinal: normal bowel sounds, non tender, soft Extremity: Normal Capillary Refill Neurologic/Psychiatric: Alert, Oriented x3 Skin: Normal Color Lymphatic: No Adenopathy Results Lab Laboratory Tests 05/30/16 05:25: White Blood Count 7.0, Red Blood Count 3.61L, Hemoglobin 10.2L, Hematocrit 31L, Mean Corpuscular Volume 87, Mean Corpuscular Hemoglobin 28, Mean Corpuscular Hemoglobin Concent 33, Red Cell Distribution Width 13.4, Platelet Count 313, Mean Platelet Volume 10.6H, Neutrophils (%) (Auto) 66, Lymphocytes (%) (Auto) 22 , Monocytes (%) (Auto) 8, Eosinophils (%) (Auto) 3, Basophils (%) (Auto) 1, Neutrophils # (Auto) 4.6, Lymphocytes # (Auto) 1.6, Monocytes # (Auto) 0.6, Eosinophils # (Auto) 0.2, Basophils # (Auto) 0.0, Sodium Level 136, Potassium Level 3.8, Chloride Level 102, Carbon Dioxide Level 24, Anion Gap 10, Blood Urea Nitrogen 4L, Creatinine 0.54L, Estimat Glomerular Filtration Rate > 60, BUN /Creatinine Ratio 7, Glucose Level 74, Calcium Level 8.3L, Phosphorus Level 2.3 , Magnesium Level 1.5L Assessment/Plan Assessment/Plan Assess & Plan/Chief Complaint s/p laparoscopic LAR for adenocarcinoma. doing well. tolerating diet and having BM's. ambulating well. pain controlled. advance diet. ok for home when ok with medicine. Clinical Quality Measures DVT/VTE Risk/Contraindication: Risk Factor Score Per Nursin RFS Level Per Nursing on Admit: 4+=Very High KATHI MCCLURE MD May 30, 2016 9:27 am
[2016-05-30] MEDS ORDERED: HYDR-3730 PO (09:29)
--- NOTE | 2016-05-30 09:30 | Discharge Inst-Surgical ---
D/C Lap Instructions-KAMI New, Converted, or Re-Newed RX: RX on Chart Follow Up Appt this saturday 06/03 Activity as tolerated No driving for 24 hours No driving while on pain medications Incentive Spirometry use every 2 hours while awake Regular low residue diet. Symptoms to Report: Fever over 101 degree F, Nausea/Vomiting Infection Signs and Symptoms to report: Increased redness, Foul odor of wound, Increased drainage Bathing instructions: May shower Operative Area Clean/Dry; Keep incision clean/dry If any problems/questions: Contact your physician or go to Emergency Room KATHI MCCLURE MD May 30, 2016 9:30 am
[2016-05-30] MEDS ORDERED: MAGN400T6 PO (10:03)
--- NOTE | 2016-05-30 10:05 | Progress Note-Hospitalist ---
Progress Note HPI/CC on Admission CC: Medical management following uncomplicated laparoscopic low anterior sigmoid colorectal resection POD # 1 HPI: This is a 66-year-old white female clinic patient of Dr. Serra's at [facility] with a past medical history of hypothyroidism and arthritis the presents following an uncomplicated sigmoid resection due to diagnosis of colon cancer. She has an NG tube in place and overall feeling well and pain is controlled with IV pain medication. She is using her incentive spirometer faithfully and denies any other significant problems currently. I reviewed her labs at home medication list and will continue monitoring closely and following from a medical management standpoint until discharge. Progress Notes/Assess & Plan Date Seen 05/30/16 Admission Dx/Process Assessment: Uncomplicated laparoscopic low anterior sigmoid colorectal resection POD # 1 Hypothyroidism Leukocytosis Hypokalemia Anemia Diagonsis/Assessment & Plan Patient doing very well ileus is resolved and having bowel movements and tolerating by mouth intake Blood pressure mildly elevated but will restart home medication Asked about magnesium and I will send magnesium supplement and We'll see Dr. Serra her primary care provider in 2 weeks No fever, vital signs stable, pleasant Regular rate and rhythm, clear to auscultation bilaterally No edema Laboratory Tests 05/30/16 05:25 Assessment: Uncomplicated laparoscopic low anterior sigmoid colorectal resection POD # 4 Hypothyroidism Leukocytosis Hypokalemia Anemia Low magnesium Plan: MD home Mag AZUL Leal DO May 30, 2016 10:05
[2016-05-30 12:22] VITALS: BP 155/82
--- NOTE | 2016-06-09 16:14 | DISCHARGE SUMMARY ---
DATE OF SERVICE: ATTENDING PRIMARY CARE PHYSICIAN: Dr. Monie Serra. ADMISSION DIAGNOSIS: Colorectal adenocarcinoma. DISCHARGE DIAGNOSIS: Colorectal adenocarcinoma. ADDITIONAL DIAGNOSES: 1. Hypertension. 2. Hypoglycemia. 3. Hypothyroid. 4. Scleroderma. 5. Raynaud's phenomenon. 6. Rheumatoid arthritis. 7. Osteopenia. PRINCIPAL PROCEDURE: Laparoscopic low anterior colorectal resection, placement of left subclavian central venous catheter. No additional procedures. COMPLICATIONS: None. DISPOSITION: Home in stable condition. HISTORY: The patient is a 66-year-old female who was referred over to us for a biopsy proven colorectal adenocarcinoma. She has a longstanding history of constipation, even back to her teenage years. She reported that the main reason for her constipation was that she felt the need to have a bowel movement; however, would hold it, eventually causing harder stools. She reports that this continued for a few more decades. Over time she became healthier incorporating healthier foods and weight loss and states that her stools became softer. During her busy season at work during the holiday season of 01/2016, she developed intermittent episodes of rectal bleeding. She did not report any abdominal pain. She also did not feel any issues with fatigue or any other systemic symptoms. She had not had any previous colonoscopies done in the past. She also did not report any family history of colon cancer. A colonoscopy was performed on 05/06/16 and she was found to have a large sessile mass of the colorectal region. This lesion was approximately 8 cm from the anal verge. The lesion was biopsied and consistent with a moderately differentiated colorectal adenocarcinoma. She then underwent further workup including laboratory work, as well as CT scan and PET scan which did not show any signs of lymphatic invasion, as well as no distant metastasis. The lesion was identified to be approximately 5.5 cm in length. PAST MEDICAL HISTORY: Hypertension, hypoglycemia, hypothyroid, scleroderma, Raynaud's phenomenon, rheumatoid arthritis and osteopenia. PAST SURGICAL HISTORY: Total hysterectomy in the 80s, tonsillectomy. ALLERGIES: CEPHALEXIN, MOTRIN, SULFA, MEDROL DOSEPACK, CODEINE, TETANUS TOXOID AND SERUM, TAMIFLU AND PLAQUENIL. MEDICATIONS: 1. Levothyroxine 25 mcg daily. 2. Potassium 20 mEq daily. 3. Hydrochlorothiazide 50 mg daily. 4. Asp 81 mg daily. 5. Calcium daily. 6. Stout-3 fatty acid daily. 7. Hyaluronic acid daily. SOCIAL HISTORY: The patient is a previous smoker, quit 16, 40 pack years. Negative alcohol. FAMILY HISTORY: Mother hypertension, diabetes, myocardial infarction in her 60s. Maternal grandfather leukemia. Maternal aunt breast cancer. The patient underwent a laparoscopic low anterior colorectal resection and reanastomosis. We also placed a left subclavian central venous catheter. She did well after the surgery and was sent to the ICU. In the ICU she did well with stable vital signs and laboratory work. She also had adequate pain control. She was then transferred to the general surgical floor. The remainder of her hospital course was uneventful. She was able to ambulate well and have good pain control. She did pass flatus and the nasogastric tube was removed. She then was able to have multiple loose bowel movements, and her diet was advanced to a DYS 3 diet without any difficulty. Her drain was also clear serosanguineous. Her vital signs, as well as laboratory work remained normal as well. She was discharged home on 05/30/16. DISCHARGE INSTRUCTIONS: Low residue diet for the next 6 weeks. May shower. MEDICATIONS: Resume home medications. Cesar li. She is to followup in approximately 5 days for drain removal. Job ID: [id number] DocumentID: [id number] Dictated Date: 06/08/2016 18:08:18 Line Camera Operator Date: 06/09/2016 16:14:22 Dictated By: KATHI MCCLURE MD MTDD
== END 2016-05-30 13:00 | disposition home or self-care (01) | DRG 331 ==
LOC: 4TH 08:45 → SURG 08:46 → ICU 15:55 → 4TH 05-27 11:55 → ICU 05-27 12:57
PROVIDERS: ADMIT Surgery Pediatric Surgery; ATTEND Surgery Pediatric Surgery
PROC: 0DBP4ZZ Excision of Rectum, Percutaneous Endoscopic Approach (ICD-10-PCS; 2016-05-26)
PROC: 0DTN4ZZ Resection of Sigmoid Colon, Percutaneous Endoscopic Approach (ICD-10-PCS; principal; 2016-05-26 11:19)
DX: C19 Malignant neoplasm of rectosigmoid junction (principal); I10 Essential (primary) hypertension; E03.9 Hypothyroidism, unspecified; M06.9 Rheumatoid arthritis, unspecified; I73.00 Raynaud's syndrome without gangrene; E87.6 Hypokalemia; D64.9 Anemia, unspecified; E83.39 Other disorders of phosphorus metabolism; E83.42 Hypomagnesemia; Z87.891 Personal history of nicotine dependence
CPT/HCPCS: 36415; 71010; 80048; 80053; 81275; 83735; 84100; 85025; 86850; 86900; 86901; 88309; 88341; 88342; 88381; 94640; 94664; 94760

== ENCOUNTER 2016-06-15 09:21 | Outpatient (RCR) | payer BC, MEDICARE ==
[~2016-06-15 09:21] MED LIST changes: +HYDR-3730 PO; +MAGN400T6 PO
[2016-06-15 10:51] LABS: BASOPHILS # (AUTO) 0.1 10^3/uL (0.0-0.1); BASOPHILS % (AUTO) 1 % (0-10); EOSINOPHILS # (AUTO) 0.3 10^3/uL (0.0-0.3); EOSINOPHILS % (AUTO) 4 % (0-10); LYMPHOCYTES # (AUTO) 1.3 X 10^3 (1.0-4.0); LYMPHOCYTES % (AUTO) 18 % (12-44); MEAN CORPUSCULAR HEMOGLOBIN 28 PG (25-34); MEAN CORPUSCULAR HGB CONC 34 G/DL (32-36); MEAN CORPUSCULAR VOLUME 83 FL (80-99); MEAN PLATELET VOLUME 9.5 FL (7.4-10.4); MONOCYTES # (AUTO) 0.7 X 10^3 (0.0-1.0); MONOCYTES % (AUTO) 10 % (0-12); NEUTROPHILS # (AUTO) 4.9 X 10^3 (1.8-7.8); NEUTROPHILS % (AUTO) 68 % (42-75); PLATELET COUNT 420 10^3/uL (130-400); RED BLOOD COUNT 4.47 10^6/uL (4.35-5.85); RED CELL DISTRIBUTION WIDTH 13.4 % (10.0-14.5); WHITE BLOOD COUNT 7.2 10^3/uL (4.3-11.0)
[2016-06-15 11:16] LABS: ALANINE AMINOTRANSFERASE 12 U/L (0-55); ALBUMIN 3.9 G/DL (3.2-4.5); ANION GAP 6 MMOL/L (5-14); BILIRUBIN,TOTAL 0.4 MG/DL (0.1-1.0); BLOOD UREA NITROGEN 8 MG/DL (7-18); BUN/CREATININE RATIO 12; CARBON DIOXIDE 29 MMOL/L (21-32); CHLORIDE 95 MMOL/L (98-107); CREATININE SERUM 0.69 MG/DL (0.60-1.30); GFR ESTIMATED > 60; GLUCOSE 105 MG/DL (70-105); POTASSIUM 4.9 MMOL/L (3.6-5.0); SODIUM 130 MMOL/L (135-145); TOTAL PROTEIN 6.3 G/DL (6.4-8.2)
[2016-06-15 11:46] LABS: ASPARTATE AMINO TRANSFERASE 14 U/L (5-34)
== END 2016-09-13 | disposition home or self-care (01) ==
LOC: ONC 09:21
PROVIDERS: ATTEND Internal Medicine Hematology & Oncology
DX: C19 Malignant neoplasm of rectosigmoid junction (principal); I10 Essential (primary) hypertension; E03.9 Hypothyroidism, unspecified; Z87.891 Personal history of nicotine dependence
CPT/HCPCS: 36415; 80053; 82378; 85025; 99214

== ENCOUNTER 2016-09-29 08:44 | Outpatient (RCR) | payer BC, MEDICARE ==
[2016-09-29 09:00] LABS: BASOPHILS % (AUTO) 1 % (0-10); EOSINOPHILS # (AUTO) 0.7 10^3/uL (0.0-0.3); EOSINOPHILS % (AUTO) 10 % (0-10); LYMPHOCYTES # (AUTO) 1.3 X 10^3 (1.0-4.0); LYMPHOCYTES % (AUTO) 20 % (12-44); MEAN CORPUSCULAR HEMOGLOBIN 29 PG (25-34); MEAN CORPUSCULAR HGB CONC 33 G/DL (32-36); MEAN CORPUSCULAR VOLUME 88 FL (80-99); MEAN PLATELET VOLUME 10.2 FL (7.4-10.4); MONOCYTES # (AUTO) 0.5 X 10^3 (0.0-1.0); MONOCYTES % (AUTO) 8 % (0-12); NEUTROPHILS % (AUTO) 62 % (42-75); PLATELET COUNT 320 10^3/uL (130-400); RED BLOOD COUNT 4.51 10^6/uL (4.35-5.85); RED CELL DISTRIBUTION WIDTH 14.8 % (10.0-14.5); WHITE BLOOD COUNT 6.5 10^3/uL (4.3-11.0)
[2016-09-29 09:29] LABS: ALANINE AMINOTRANSFERASE 14 U/L (0-55); ANION GAP 6 MMOL/L (5-14); ASPARTATE AMINO TRANSFERASE 18 U/L (5-34); BILIRUBIN,TOTAL 0.3 MG/DL (0.1-1.0); BLOOD UREA NITROGEN 18 MG/DL (7-18); BUN/CREATININE RATIO 26; CALCIUM 9.7 MG/DL (8.5-10.1); CARBON DIOXIDE 28 MMOL/L (21-32); CHLORIDE 105 MMOL/L (98-107); CREATININE SERUM 0.68 MG/DL (0.60-1.30); GFR ESTIMATED > 60; GLUCOSE 67 MG/DL (70-105); POTASSIUM 5.3 MMOL/L (3.6-5.0); SODIUM 139 MMOL/L (135-145); TOTAL PROTEIN 6.5 GM/DL (6.4-8.2)
== END 2016-11-12 | disposition home or self-care (01) ==
LOC: ONC 08:44
PROVIDERS: ATTEND Internal Medicine Hematology & Oncology
DX: C19 Malignant neoplasm of rectosigmoid junction (principal); I10 Essential (primary) hypertension; E03.9 Hypothyroidism, unspecified; Z87.891 Personal history of nicotine dependence
CPT/HCPCS: 36415; 80053; 82378; 85025; 99213

== ENCOUNTER 2016-12-22 08:56 | Outpatient (RCR) | payer BC, MEDICARE ==
[2016-12-22 09:28] LABS: BASOPHILS % (AUTO) 1 % (0-10); EOSINOPHILS # (AUTO) 0.3 10^3/uL (0.0-0.3); EOSINOPHILS % (AUTO) 5 % (0-10); HEMATOCRIT 39 % (35-52); HEMOGLOBIN 13.1 G/DL (11.5-16.0); LYMPHOCYTES # (AUTO) 0.9 X 10^3 (1.0-4.0); LYMPHOCYTES % (AUTO) 17 % (12-44); MEAN CORPUSCULAR HEMOGLOBIN 30 PG (25-34); MEAN CORPUSCULAR HGB CONC 33 G/DL (32-36); MEAN CORPUSCULAR VOLUME 90 FL (80-99); MEAN PLATELET VOLUME 10.3 FL (7.4-10.4); MONOCYTES # (AUTO) 0.4 X 10^3 (0.0-1.0); MONOCYTES % (AUTO) 8 % (0-12); NEUTROPHILS # (AUTO) 3.6 X 10^3 (1.8-7.8); NEUTROPHILS % (AUTO) 69 % (42-75); PLATELET COUNT 284 10^3/uL (130-400); RED BLOOD COUNT 4.39 10^6/uL (4.35-5.85); RED CELL DISTRIBUTION WIDTH 12.8 % (10.0-14.5); WHITE BLOOD COUNT 5.3 10^3/uL (4.3-11.0)
[2016-12-22 09:50] LABS: ALANINE AMINOTRANSFERASE 19 U/L (0-55); ALBUMIN 3.9 GM/DL (3.2-4.5); ALKALINE PHOSPHATASE 51 U/L (40-136); BILIRUBIN,TOTAL 0.4 MG/DL (0.1-1.0); BUN/CREATININE RATIO 25; CALCIUM 9.4 MG/DL (8.5-10.1); CARBON DIOXIDE 27 MMOL/L (21-32); CHLORIDE 106 MMOL/L (98-107); CREATININE SERUM 0.68 MG/DL (0.60-1.30); GFR ESTIMATED > 60; GLUCOSE 90 MG/DL (70-105); POTASSIUM 3.9 MMOL/L (3.6-5.0); SODIUM 139 MMOL/L (135-145); TOTAL PROTEIN 6.5 GM/DL (6.4-8.2)
== END 2017-03-15 15:57 | disposition home or self-care (01) ==
LOC: ONC 08:56
PROVIDERS: ATTEND Internal Medicine Hematology & Oncology
DX: C19 Malignant neoplasm of rectosigmoid junction (principal); I10 Essential (primary) hypertension; E03.9 Hypothyroidism, unspecified; Z87.891 Personal history of nicotine dependence
CPT/HCPCS: 80053; 82378; 85025; 99213

== ENCOUNTER 2017-03-16 08:42 | Outpatient (RCR) | payer BC, MEDICARE ==
[2017-03-16 09:06] LABS: BASOPHILS % (AUTO) 1 % (0-10); EOSINOPHILS # (AUTO) 0.2 10^3/uL (0.0-0.3); EOSINOPHILS % (AUTO) 3 % (0-10); HEMATOCRIT 40 % (35-52); HEMOGLOBIN 13.6 G/DL (11.5-16.0); LYMPHOCYTES # (AUTO) 1.4 X 10^3 (1.0-4.0); LYMPHOCYTES % (AUTO) 20 % (12-44); MEAN CORPUSCULAR HEMOGLOBIN 29 PG (25-34); MEAN CORPUSCULAR HGB CONC 34 G/DL (32-36); MEAN CORPUSCULAR VOLUME 87 FL (80-99); MEAN PLATELET VOLUME 10.1 FL (7.4-10.4); MONOCYTES # (AUTO) 0.7 X 10^3 (0.0-1.0); MONOCYTES % (AUTO) 10 % (0-12); NEUTROPHILS # (AUTO) 4.7 X 10^3 (1.8-7.8); NEUTROPHILS % (AUTO) 67 % (42-75); PLATELET COUNT 287 10^3/uL (130-400); RED BLOOD COUNT 4.65 10^6/uL (4.35-5.85); WHITE BLOOD COUNT 7.1 10^3/uL (4.3-11.0)
[2017-03-16 09:21] LABS: ALANINE AMINOTRANSFERASE 19 U/L (0-55); ALBUMIN 4.2 GM/DL (3.2-4.5); ALKALINE PHOSPHATASE 53 U/L (40-136); BILIRUBIN,TOTAL 0.4 MG/DL (0.1-1.0); BUN/CREATININE RATIO 22; CALCIUM 9.5 MG/DL (8.5-10.1); CARBON DIOXIDE 27 MMOL/L (21-32); CHLORIDE 104 MMOL/L (98-107); CREATININE SERUM 0.77 MG/DL (0.60-1.30); GFR ESTIMATED > 60; GLUCOSE 79 MG/DL (70-105); POTASSIUM 4.8 MMOL/L (3.6-5.0); SODIUM 141 MMOL/L (135-145); TOTAL PROTEIN 6.9 GM/DL (6.4-8.2)
== END 2017-06-14 16:32 | disposition home or self-care (01) ==
LOC: ONC 08:42
PROVIDERS: ATTEND Internal Medicine Hematology & Oncology
DX: C18.7 Malignant neoplasm of sigmoid colon (principal); I10 Essential (primary) hypertension; E03.9 Hypothyroidism, unspecified; Z87.891 Personal history of nicotine dependence; Z79.899 Other long term (current) drug therapy
CPT/HCPCS: 36415; 80053; 82378; 85025; 99213

== ENCOUNTER 2017-06-15 08:54 | Outpatient (RCR) | payer BC, MEDICARE ==
[2017-06-15 09:07] LABS: BASOPHILS % (AUTO) 1 % (0-10); EOSINOPHILS # (AUTO) 0.3 10^3/uL (0.0-0.3); EOSINOPHILS % (AUTO) 5 % (0-10); HEMATOCRIT 37 % (35-52); HEMOGLOBIN 12.4 G/DL (11.5-16.0); LYMPHOCYTES # (AUTO) 1.1 X 10^3 (1.0-4.0); LYMPHOCYTES % (AUTO) 20 % (12-44); MEAN CORPUSCULAR HEMOGLOBIN 30 PG (25-34); MEAN CORPUSCULAR HGB CONC 34 G/DL (32-36); MEAN CORPUSCULAR VOLUME 87 FL (80-99); MEAN PLATELET VOLUME 9.9 FL (7.4-10.4); MONOCYTES # (AUTO) 0.5 X 10^3 (0.0-1.0); MONOCYTES % (AUTO) 10 % (0-12); NEUTROPHILS # (AUTO) 3.5 X 10^3 (1.8-7.8); NEUTROPHILS % (AUTO) 65 % (42-75); PLATELET COUNT 281 10^3/uL (130-400); RED BLOOD COUNT 4.21 10^6/uL (4.35-5.85); WHITE BLOOD COUNT 5.3 10^3/uL (4.3-11.0)
[2017-06-15 09:27] LABS: ALANINE AMINOTRANSFERASE 18 U/L (0-55); ALBUMIN 4.1 GM/DL (3.2-4.5); ALKALINE PHOSPHATASE 58 U/L (40-136); BILIRUBIN,TOTAL 0.4 MG/DL (0.1-1.0); BUN/CREATININE RATIO 21; CALCIUM 9.4 MG/DL (8.5-10.1); CARBON DIOXIDE 25 MMOL/L (21-32); CHLORIDE 107 MMOL/L (98-107); CREATININE SERUM 0.71 MG/DL (0.60-1.30); GFR ESTIMATED > 60; GLUCOSE 102 MG/DL (70-105); POTASSIUM 4.2 MMOL/L (3.6-5.0); SODIUM 139 MMOL/L (135-145); TOTAL PROTEIN 6.4 GM/DL (6.4-8.2)
[2017-08-15] MEDS ORDERED: LORA10TA76 PO (15:51)
[2017-08-15] MEDS ORDERED: LEVO25TA5 PO (15:51)
[2017-08-15] MEDS ORDERED: MULT-192 PO (15:51)
[2017-08-15] MEDS ORDERED: AMLO5TAB2 PO (15:51)
[2017-08-15] MEDS ORDERED: ASCO500T5 PO (15:51)
[2017-08-15] MEDS ORDERED: HYAL1CAP PO (15:51)
== END 2017-09-13 | disposition home or self-care (01) ==
LOC: ONC 08:54
PROVIDERS: ATTEND Internal Medicine Hematology & Oncology
DX: Z08 Encounter for follow-up examination after completed treatment for malignant neoplasm (principal); Z85.038 Personal history of other malignant neoplasm of large intestine; I10 Essential (primary) hypertension; E03.9 Hypothyroidism, unspecified; Z87.891 Personal history of nicotine dependence; Z79.899 Other long term (current) drug therapy
CPT/HCPCS: 36415; 80053; 82378; 85025; 99213

== ENCOUNTER 2017-08-15 05:45 | Outpatient (CLI) | payer BC, MEDICARE ==
[~2017-08-15] VITALS: Ht 160 cm; Wt 62.3 kg
[2017-08-15] MEDS ORDERED: MULT-192 PO (15:51)
[2017-08-15] MEDS ORDERED: LEVO25TA5 PO (15:51)
[2017-08-15] MEDS ORDERED: ASCO500T5 PO (15:51)
[2017-08-15] MEDS ORDERED: AMLO5TAB2 PO (15:51)
[2017-08-15] MEDS ORDERED: LORA10TA76 PO (15:51)
[2017-08-15] MEDS ORDERED: HYAL1CAP PO (15:51)
== END 2017-08-15 15:56 ==
LOC: PREOP 05:45
PROVIDERS: ATTEND Surgery
DX: Z01.818 Encounter for other preprocedural examination (principal)

== ENCOUNTER 2017-08-18 09:50 | Day surgery (SDC) | payer BC, MEDICARE ==
[~2017-08-18] VITALS: Ht 160 cm; Wt 62.3 kg
[~2017-08-18 09:50] MED LIST changes: +AMLO5TAB2 PO; +ASCO500T5 PO; +HYAL1CAP PO; +LORA10TA76 PO; +MULT-192 PO
[2017-08-18] MEDS ORDERED: NS IV 500 ML 500 ML IV PRN (10:03)
[2017-08-18 10:05] VITALS: BP 164/84
[2017-08-18] MEDS ORDERED: NS IV 500 ML 500 ML ONE (10:05)
[2017-08-18] MEDS ORDERED: LIDOCAINE JELLY 2% (XYLOCAINE) 5 ML TUBE MM PRN (10:15)
[2017-08-18] MEDS ORDERED: LIDOCAINE JELLY 2% (XYLOCAINE) 5 ML TUBE ONE (10:57)
[2017-08-18] MEDS ORDERED: MIDAZOLAM 2 MG/2 ML (VERSED) VIAL ONE ×5 (10:57)
[2017-08-18] MEDS ORDERED: fentaNYL INJECTION 100 MCG/2 ML AMP ONE (10:57)
--- NOTE | 2017-08-18 11:18 | Conscious Sedation/ASA ---
Conscious Sedation Pre-Proced Time Reviewed: 11:15 ASA Class: 2 Airway Mallampati Classification: (upper mattaponi appropriate class) I. II. III, IV Lungs Heart ASA score ASA 1: a normal healthy patient ASA 2: a patient with a mild systemic disease (mid diabetes, controlled hypertension, obesity ASA 3: a patient with a severe systemic disease that limits activity (angina , COPD, prior Myocardial infarction) ASA 4: a patient with an incapacitating disease that is a constant threat to life (CHF, renal failure) ASA 5: a moribund patient not expected to survive 24 hrs. (ruptured aneurysm) ASA 6: a declared brain patient whose organs are being harvested. For emergent operations, add the letter E after the classification Grade 2 Sedation Plan: Analgesia, Amnesia, Plan communicated to team members, Discussed options with patient/fam, Discussed risks with patient/fam Note The patient is an appropriate candidate to undergo the planned procedure, sedation, and anesthesia. The patient immediately re-assessed prior to indication. KATHI MCCLURE MD Aug 18, 2017 11:18 am
--- NOTE | 2017-08-18 11:19 | Progress Note-Pre Operative ---
Pre-Operative Progress Note H&P Reviewed The H&P was reviewed, patient examined and no changes noted. Date Seen by Provider: Aug 18, 2017 Time Seen by Provider: 11:15 Date H&P Reviewed: Aug 18, 2017 Time H&P Reviewed: 11:15 Pre-Operative Diagnosis: hx colon cancer KATHI MCCLURE MD Aug 18, 2017 11:19 am
[2017-08-18] MEDS ORDERED: ONDANSETRON 4 MG/2 ML (SDV) Z0FRAN IV PRN (11:30)
[2017-08-18] MEDS ORDERED: HYDROcodone/APAP 5 MG/325 MG (LORTAB) TAB PO PRN (11:30)
[2017-08-18] MEDS ORDERED: ACETAMINOPHEN 325 MG TABLET PO PRN (11:30)
[2017-08-18] MEDS ORDERED: morphine INJ 10 MG/ML 1ML (SYR OR VIAL) IV PRN (11:30)
[2017-08-18] MEDS: MIDAZOLAM 2 MG/2 ML (VERSED) VIAL IVP PRN ×4 (11:33→11:49)
[2017-08-18] MEDS: fentaNYL INJECTION 100 MCG/2 ML AMP IVP PRN ×2 (11:34→11:38)
--- NOTE | 2017-08-18 12:11 | Progress Note-Post Operative ---
Post-Operative Progess Note Surgeon (s)/Qa Software Tester (s) Surgeon KATHI MCCLURE MD Qa Software Tester: none Pre-Operative Diagnosis hx colon cancer Post-Operative Diagnosis mild chronic stage 1 ext and int hemorrhoids, normal colorectal anastomosis. Procedure & Operative Findings Date of Procedure 08/18/17 Procedure Performed/Findings Colonoscopy. Anesthesia Type CS Estimated Blood Loss Estimated blood loss (mL): minimal Specimens/Packing Specimens Removed none KATHI MCCLURE MD Aug 18, 2017 12:11 pm
--- NOTE | 2017-08-18 12:12 | Discharge Inst-Surgical ---
D/C Lap Instructions-KAMI Follow Up 1 year Activity as tolerated High Fiber Diet 25g or more per day Avoid Alcohol, Caffeine, Spicy [place] and Acid foods. Drink 64 fluid oz or more of fluids per day. Symptoms to Report: Fever over 101 degree F, Nausea/Vomiting If any problems/questions: Contact your physician or go to Emergency Room KATHI MCCLURE MD Aug 18, 2017 12:12 pm
[2017-08-18 12:25] VITALS: BP 120/60
[2017-08-18 13:00] VITALS: BP 132/76
[2017-08-18 13:10] VITALS: BP 132/76
--- NOTE | 2017-08-18 16:47 | OPERATIVE REPORT ---
DATE OF SERVICE: 08/18/2017 ATTENDING PRIMARY CARE PHYSICIAN: Monie Serra MD. PREOPERATIVE DIAGNOSIS: History of colorectal cancer at the rectosigmoid junction. POSTOPERATIVE DIAGNOSIS: Mild chronic stage I external and internal hemorrhoids. Remainder of the colon and rectum were normal. PROCEDURE: Colonoscopy. SURGEON: Kathi Mcclure MD. ANESTHESIA: Conscious sedation. ESTIMATED BLOOD LOSS: Minimal. FINDINGS: Chronic stage I external and internal hemorrhoids, not actively edematous nor inflamed and no bleeding. The anastomosis was visible and widely patent with no recurrent tumors. Remainder of the colon was normal. DISPOSITION: The patient tolerated the procedure well. INDICATIONS: The patient is a 67-year-old female with a history of adenocarcinoma at the rectosigmoid junction, status post low anterior resection on 05/26/2016. On 05/06/2016, she was found to have a large sessile mass of the colorectal region approximately 8 cm from the anal verge. This was biopsied and consistent with moderately differentiated colorectal adenocarcinoma. Further workup did not show any metastasis or any lymphatic invasion. The final pathology came back as a moderately to poorly differentiated adenocarcinoma extending into, but not through the muscularis propria with 18 lymph nodes negative for malignancy, making this a stage II colorectal cancer. She is in need of a followup colonoscopy. DESCRIPTION OF PROCEDURE: The patient was brought to the endoscopy suite, laid in left lateral decubitus position. After adequate IV pain and sedating medications and conscious sedation anesthesia, a digital rectal examination was performed. Chronic stage I external and internal hemorrhoids were identified. These were not actively edematous nor inflamed and no bleeding. Normal sphincter tone was felt and there were no palpable masses. The endoscope was then intubated to the anus and the rectum gently insufflated. The endoscope was then advanced to the valves of [place] of the rectum with no polyps or any neoplasms identified. The anastomotic staple line was identified and intact with no recurrent tumors. The endoscope was then advanced through the remainder of the descending, transverse, ascending colon and the cecum. These segments were normal. There were no polyps or any neoplasms identified. Endoscope was slowly withdrawn while taking a second look and suctioning of residual air with no additional findings. The patient tolerated the procedure well. We will recommend a high-fiber diet with at least 30 grams of fiber per day as well as copious amounts of water to promote soft stools on a daily basis. We will recommend a followup colonoscopy in approximately 1 year. Job ID: [id number] DocumentID: [id number] Dictated Date: 08/18/2017 12:06:38 Tug Boat Engineer Date: 08/18/2017 16:46:41 Dictated By: KATHI MCCLURE MD MTDD
== END 2017-08-18 13:15 | disposition home or self-care (01) ==
LOC: ENDO 09:50
PROVIDERS: ATTEND Surgery
DX: Z08 Encounter for follow-up examination after completed treatment for malignant neoplasm (principal); Z85.038 Personal history of other malignant neoplasm of large intestine; K64.0 First degree hemorrhoids; Z98.0 Intestinal bypass and anastomosis status; I10 Essential (primary) hypertension; Z79.82 Long term (current) use of aspirin; Z79.899 Other long term (current) drug therapy; Z87.891 Personal history of nicotine dependence

== ENCOUNTER 2017-09-22 07:47 | Outpatient (RCR) | payer BC ==
[~2017-09-22 07:47] MED LIST changes: -AMLO5TAB2 PO; +AMLO5TAB7 PO
[2017-09-22 08:05] LABS: BASOPHILS % (AUTO) 0 % (0-10); EOSINOPHILS # (AUTO) 0.4 10^3/uL (0.0-0.3); EOSINOPHILS % (AUTO) 7 % (0-10); HEMATOCRIT 38 % (35-52); HEMOGLOBIN 12.8 G/DL (11.5-16.0); LYMPHOCYTES # (AUTO) 1.5 X 10^3 (1.0-4.0); LYMPHOCYTES % (AUTO) 22 % (12-44); MEAN CORPUSCULAR HEMOGLOBIN 30 PG (25-34); MEAN CORPUSCULAR HGB CONC 34 G/DL (32-36); MEAN CORPUSCULAR VOLUME 88 FL (80-99); MONOCYTES # (AUTO) 0.5 X 10^3 (0.0-1.0); MONOCYTES % (AUTO) 8 % (0-12); NEUTROPHILS # (AUTO) 4.3 X 10^3 (1.8-7.8); NEUTROPHILS % (AUTO) 64 % (42-75); PLATELET COUNT 291 10^3/uL (130-400); RED CELL DISTRIBUTION WIDTH 13.5 % (10.0-14.5); WHITE BLOOD COUNT 6.7 10^3/uL (4.3-11.0)
[2017-09-22 08:28] LABS: ALANINE AMINOTRANSFERASE 19 U/L (0-55); ALKALINE PHOSPHATASE 50 U/L (40-136); BILIRUBIN,TOTAL 0.2 MG/DL (0.1-1.0); BUN/CREATININE RATIO 25; CALCIUM 9.3 MG/DL (8.5-10.1); CARBON DIOXIDE 27 MMOL/L (21-32); CHLORIDE 105 MMOL/L (98-107); CREATININE SERUM 0.71 MG/DL (0.60-1.30); GFR ESTIMATED > 60; GLUCOSE 87 MG/DL (70-105); POTASSIUM 3.8 MMOL/L (3.6-5.0); SODIUM 138 MMOL/L (135-145); TOTAL PROTEIN 6.7 GM/DL (6.4-8.2)
== END 2017-10-13 | disposition home or self-care (01) ==
LOC: ONC 07:47
PROVIDERS: ATTEND Internal Medicine Hematology & Oncology
DX: C18.7 Malignant neoplasm of sigmoid colon (principal); I10 Essential (primary) hypertension; E03.9 Hypothyroidism, unspecified; Z87.891 Personal history of nicotine dependence; Z79.899 Other long term (current) drug therapy
CPT/HCPCS: 80053; 82378; 85025; 99213

== ENCOUNTER 2017-12-22 07:55 | Outpatient (RCR) | payer BC ==
[~2017-12-22 07:55] MED LIST changes: -AMLO5TAB7 PO; +AMLO5TAB9 PO
[2017-12-22 08:12] LABS: BASOPHILS % (AUTO) 1 % (0-10); EOSINOPHILS # (AUTO) 0.2 10^3/uL (0.0-0.3); EOSINOPHILS % (AUTO) 4 % (0-10); HEMATOCRIT 40 % (35-52); HEMOGLOBIN 13.3 G/DL (11.5-16.0); LYMPHOCYTES # (AUTO) 0.9 X 10^3 (1.0-4.0); LYMPHOCYTES % (AUTO) 22 % (12-44); MEAN CORPUSCULAR HEMOGLOBIN 29 PG (25-34); MEAN CORPUSCULAR HGB CONC 33 G/DL (32-36); MEAN CORPUSCULAR VOLUME 89 FL (80-99); MEAN PLATELET VOLUME 10.5 FL (7.4-10.4); MONOCYTES # (AUTO) 0.4 X 10^3 (0.0-1.0); MONOCYTES % (AUTO) 9 % (0-12); NEUTROPHILS # (AUTO) 2.7 X 10^3 (1.8-7.8); NEUTROPHILS % (AUTO) 64 % (42-75); PLATELET COUNT 244 10^3/uL (130-400); RED CELL DISTRIBUTION WIDTH 13.3 % (10.0-14.5); WHITE BLOOD COUNT 4.2 10^3/uL (4.3-11.0)
[2017-12-22 08:35] LABS: ALANINE AMINOTRANSFERASE 20 U/L (0-55); ALBUMIN 4.5 GM/DL (3.2-4.5); ALKALINE PHOSPHATASE 55 U/L (40-136); BILIRUBIN,TOTAL 0.4 MG/DL (0.1-1.0); BUN/CREATININE RATIO 18; CALCIUM 9.6 MG/DL (8.5-10.1); CARBON DIOXIDE 26 MMOL/L (21-32); CHLORIDE 104 MMOL/L (98-107); CREATININE SERUM 0.72 MG/DL (0.60-1.30); GFR ESTIMATED > 60; GLUCOSE 74 MG/DL (70-105); POTASSIUM 3.8 MMOL/L (3.6-5.0); SODIUM 138 MMOL/L (135-145); TOTAL PROTEIN 7.2 GM/DL (6.4-8.2)
== END 2018-03-22 | disposition home or self-care (01) ==
LOC: ONC 07:55
PROVIDERS: ATTEND Internal Medicine Hematology & Oncology
DX: C18.7 Malignant neoplasm of sigmoid colon (principal); I10 Essential (primary) hypertension; E03.9 Hypothyroidism, unspecified; Z87.891 Personal history of nicotine dependence; Z79.899 Other long term (current) drug therapy
CPT/HCPCS: 36415; 80053; 82378; 85025; 99213

== ENCOUNTER → 2018-12-21 | Outpatient (CLI) | payer BC ==
[2018-12-21 08:18] LABS: BASOPHILS % (AUTO) 1 % (0-10); EOSINOPHILS # (AUTO) 0.2 10^3/uL (0.0-0.3); EOSINOPHILS % (AUTO) 5 % (0-10); HEMATOCRIT 38 % (35-52); HEMOGLOBIN 12.2 G/DL (11.5-16.0); LYMPHOCYTES % (AUTO) 21 % (12-44); MEAN CORPUSCULAR HEMOGLOBIN 29 PG (25-34); MEAN CORPUSCULAR HGB CONC 32 G/DL (32-36); MEAN CORPUSCULAR VOLUME 89 FL (80-99); MEAN PLATELET VOLUME 9.9 FL (7.4-10.4); MONOCYTES # (AUTO) 0.4 X 10^3 (0.0-1.0); MONOCYTES % (AUTO) 9 % (0-12); NEUTROPHILS # (AUTO) 3.1 X 10^3 (1.8-7.8); NEUTROPHILS % (AUTO) 65 % (42-75); PLATELET COUNT 264 10^3/uL (130-400); RED CELL DISTRIBUTION WIDTH 13.4 % (10.0-14.5); WHITE BLOOD COUNT 4.7 10^3/uL (4.3-11.0)
[2018-12-21 08:41] LABS: ALANINE AMINOTRANSFERASE 17 U/L (0-55); ALBUMIN 4.1 GM/DL (3.2-4.5); ALKALINE PHOSPHATASE 58 U/L (40-136); BILIRUBIN,TOTAL 0.4 MG/DL (0.1-1.0); BUN/CREATININE RATIO 21; CALCIUM 9.2 MG/DL (8.5-10.1); CARBON DIOXIDE 23 MMOL/L (21-32); CHLORIDE 104 MMOL/L (98-107); CREATININE SERUM 0.72 MG/DL (0.60-1.30); GFR ESTIMATED > 60; GLUCOSE 91 MG/DL (70-105); POTASSIUM 3.8 MMOL/L (3.6-5.0); SODIUM 137 MMOL/L (135-145); TOTAL PROTEIN 6.4 GM/DL (6.4-8.2)
== END ==
LOC: EDSTATUS 09-21 07:41 → ONC 08:00
PROVIDERS: ATTEND Internal Medicine Hematology & Oncology
DX: Z85.038 Personal history of other malignant neoplasm of large intestine (principal)
CPT/HCPCS: 36415; 80053; 82378; 85025; 99213